=== PATIENT | male | born 1955 | race Caucasian/White ===

== ENCOUNTER 2018-01-18 02:10 | Inpatient (IN) | payer MEDICARE, MEDICAID ==
[2018-01-18] VITALS (28 sets, daily range): BP systolic 72–187; BP diastolic 49–139
[~2018-01-18] VITALS: Ht 177.8 cm; Wt 103.4 kg
[~2018-01-18 02:10] MED LIST: ACYCLOVIR 400400 MG PO; AMARYL4 MG PO; ANALGESIC325 MG PO; ASPIR 8181 MG PO; ASPIR-TRIN325 MG PO; EFFIENT10 MG PO; GLUCOPHAGE1000 MG PO; HYDROCHLOROTHIA25 M1 PO; HYDROCODON-ACE1 EAC7 PO; JANUMET XR 50-1 EAC1 PO; LASIX 40 MG TAB40 M2 PO; LIPITOR80 MG PO; LISINOPRIL40 MG PO; LOPRESSOR100 M1 PO; LOPRESSOR100 MG PO; MIRALAX17 GM PO; NAPROSYN500 MG PO; NIACIN ER1000 MG PO; NITROGLYCERIN0.4 MG SL; OMEGA-3 FISH O1 EAC3 PO; PACERONE 200 M200 M1 PO; PACERONE100 MG PO; POTASSIUM20 PO; PREDNISONE 10 M10 M1; PREDNISONE 10 M10 MG PO; PROTONIX40 M1 PO; TRICOR145 MG PO; TYLENOL325 MG PO
[2018-01-18 02:37] LABS: HEMATOCRIT 55.7 % (42.0-52.0); HEMOGLOBIN 18.3 gm/dL (14.0-18.0); MCH 30.6 pg (26.0-34.0); MCHC 32.9 g/dL (28.0-37.0); MPV 8.9 fl. (7.2-11.1); NUCLEATED RBCS 0 /100WBC; PLATELET COUNT* 281 thou/uL (150-400); RBC 5.98 mil/uL (4.50-6.00); RDW-CV 14.2 % (10.5-14.5); WBC 18.9 thou/uL (4.0-11.0)
[2018-01-18 02:50] LABS: ANION GAP 10 mmol/L (7-16); BUN 22 mg/dL (7-18); CHLORIDE 100 mmol/L (98-107); CO2 26 mmol/L (21-32); CREATININE 1.4 mg/dL (0.6-1.3); SODIUM 136 mmol/L (136-145)
[2018-01-18 02:51] LABS: CALCIUM 9.2 mg/dL (8.5-10.1); GLUCOSE 430 mg/dL (70-99)
[2018-01-18 02:52] LABS: APTT 25.9 Seconds (25.0-31.3)
[2018-01-18 02:55] LABS: ALKALINE PHOSPHATASE 136 U/L (46-116); LIPASE 337 U/L (73-393); SGOT 16 U/L (15-37); SGPT 20 U/L (30-65); TOTAL BILIRUBIN 0.3 mg/dL (<0.1-1.0); TOTAL PROTEIN 7.1 g/dL (6.4-8.2); TROPONIN-I LEVEL <0.06 ng/mL (<0.06)
[2018-01-18 02:56] LABS: NT-PRO BRAIN NAT PEPTIDE 1818 pg/mL (<300)
[2018-01-18 05:39] LABS: ABSOLUTE EOSINOPHILS 0.8 thou/uL (0.0-0.7); ABSOLUTE LYMPHOCYTES 7.9 thou/uL (0.8-5.3); ABSOLUTE MONOCYTES 0.8 thou/uL (0.0-1.2); ABSOLUTE NEUTROPHILS 9.5 thou/uL (1.6-8.1); ANISOCYTOSIS 1+; ATYPICAL LYMPHS 2 %; PLATELET ESTIMATE ADEQUATE; POIKILOCYTOSIS 1+
[2018-01-18 06:15] LABS: CHOLESTEROL 168 mg/dL (<200); HDL CHOLESTEROL 32 mg/dL (>40); LDL CHOLESTEROL 63 mg/dL (<100); TC:HDL 5.3 Ratio (Not establshd); TRIGLYCERIDE 367 mg/dL (<150); TROPONIN-I LEVEL 0.46 ng/mL (<0.06); VLDL 73 mg/dL (<40)
[2018-01-18 06:19] LABS: SERUM ASSESSMENT Clear
[2018-01-18 07:37] LABS: BE -5.2 mmol/L (-2 to +3); HCO3 17.9 mmol/L (22.0-26.0); PCO2 29.1 mmHg (35.0-45.0); pH 7.407 (7.340-7.450)
[2018-01-18 07:39] LABS: PO2 246.2 mmHg (75.0-100.0)
--- NOTE | 2018-01-18 08:49 | CON ---
[address] [address] CONSULTATION Name: KALLIEKINGSLEY MATHIS Room: [address] ADM IN M.R.#: [id number] Admission: 01/18/18 Attend Phys: Dante Peralta MD, F Discharge: Date of : 53 Report #: [id number] THIS REPORT FOR: //name// CC: Dante Peralta Physician staff LUCINA DUENASZ DATE OF SERVICE: 01/18/2018 HISTORY OF PRESENT ILLNESS: The patient is a 62-year-old single white male who came to the Emergency Room, complaining of shortness of breath. The patient has an extensive past medical history. The history is obtained from the patient's fuifte-ss-qbr, who was present. The patient is currently comatose and intubated. There are also some old records available. The patient was previously here in August of 2013. The patient had a history of coronary stenting and eventually underwent multivessel bypass surgery at [facility], here in [place], [place]. He has a history of atrial flutter, has been on amiodarone. In 2013, he presented with acute chest pain. ECG showed evidence of acute inferior STEMI. He was seen urgently by Dr. Sung. Urgent heart catheterization showed 80% narrowing in the apical LAD, circumflex was subtotally occluded. The right coronary was occluded. Vein graft to the circumflex had a severe proximal stenosis. There was a patent MILAN graft. Ejection fraction of 55%. He had 2 stents placed in the vein graft to the circumflex. The patient was continued on amiodarone and started on Effient. The patient was then admitted in 2014 with right-sided weakness and was felt to have a TIA. He has not been here since that time. The patient now lives down the [facility]. According to the edkyoi-iu-frd, he had a myocardial infarction a couple of months ago and was admitted to [facility] in [place], [place]. He had coronary stents placed. Then, about a month ago, he was admitted to the [facility] in [place]. He apparently presented with chest pain. He had additional coronary stents placed about a month ago. He lives by himself down the [facility]. However, he was here, visiting his pupqal-pr-bse. Apparently, according to the uxlbdx-fr-dux, he is not very active and uses a cane for balance. They went out to dinner last night. However, he awakened her at about 1 in the morning, complained of being short of breath. An ambulance was called. He was brought to the Emergency Room. He was found to be in respiratory distress. Because of respiratory failure, the patient was intubated. There was no complaint of chest pain. He has had no recent fever or cough, according to family members. He has had no recent syncope. PAST MEDICAL HISTORY: Otherwise significant for sleep apnea and he has been on CPAP in the past. According to family members, he does not have oxygen at this time. He has had previous hernia surgery. He has diabetes, [place] [address] CONSULTATION Name: KINGSLEY ARREGUIN DEL Room: [address] IN MShannanR.#: [id number] Admission: 10/04/18 Attend Phys: Dante Peralta MD, F Discharge: Date of : 53 Report #: [id number] MEDICATIONS: His previous medications included lisinopril, Lipitor, niacin, amiodarone, metoprolol, glimepiride, Janumet, hydrochlorothiazide, fenofibrate, aspirin, Effient. FAMILY HISTORY: Negative for heart disease. SOCIAL HISTORY: He is , lives in [facility]. 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 He continues to smoke cigarettes, but half pack a day. No alcohol abuse. REVIEW OF SYSTEMS: He has had a history of TIA. He has COPD. No history of peptic ulcer disease, kidney disease, cancer. He has a history of Rojas's palsy. PHYSICAL EXAMINATION: GENERAL: Revealed a disheveled middle-aged male. VITAL SIGNS: He had a blood pressure of 160/90, pulse is 100. HEENT: He was anicteric. Mucous membranes moist. NECK: Veins difficult to assess due to his long ma. CHEST: Revealed coarse breath sounds bilaterally. HEART: Regular, tachycardic. Distant heart sounds. ABDOMEN: Obese. EXTREMITIES: Had no edema. Dorsalis pedis pulse cannot be palpated. SKIN: Cool and dry. LABORATORY DATA: ECG showed sinus tachycardia, evidence of previous anterior infarction. His workup in the Emergency Room showed potassium 4.0, creatinine 1.4, glucose 430. Liver function studies were normal. Troponin 0.06. White blood cell count 18.9, hemoglobin 18.3. His echocardiogram in 2014 showed an ejection fraction of 50%. His chest x-ray done in the Emergency Room is not available to be read at this time. IMPRESSION AND RECOMMENDATIONS: 1. Acute respiratory failure. The patient intubated. Recommend urgent cardiac catheterization. 2. Acute coronary syndrome. Recommend cardiac catheterization. The patient had recent stents. Recommend cardiac catheterization. 3. Diabetes. The patient will require a sliding scale. 4. Chronic kidney disease. The patient will be at risk for acute tubular necrosis. 5. History of atrial flutter. The patient has been on amiodarone. 6. Hypertension. The patient on MEL inhibitor, beta steve. 7. Hyperlipidemia. The patient has been on a statin drug. 8. History of sleep apnea. 9. Obesity. 10. Tobacco abuse. 11. Chronic [place] [address] CONSULTATION Name: KINGSLEY ARREGUIN Room: [address]#: [id number] Admission: 01/18/18 Attend Phys: Dante Peralta MD, F Discharge: Date of : 53 Report #: [id number] The total time involved was from 3:00 a.m. to 4:30 a.m. or 1-1/2 hours. <ELECTRONICALLY SIGNED> By: Dante Peralta MD, FACC 01/18/18 0849 0442 [id number] Peralta MD, FACC /nt
--- NOTE | 2018-01-18 15:34 | 2DMMODE ---
[place] [address] 2 D/M-MODE ECHOCARDIOGRAM Name: CURT ARREGUIN Room: 002-P ADM IN [facility]#: [id number] Admission: 01/18/18 Attend Phys: Dante Peralta MD Discharge: Date of : 53 Date of Service: 01/18/18 1534 Report #: [id number] THIS REPORT FOR: //name// APPROVED REPORT Study performed: 01/18/2018 09:43:42 EXAM: Comprehensive 2D, Doppler, and color-flow Echocardiogram Patient Location: In-Patient Room #: 002 Status: routine BSA: 2.25 HR: 93 bpm BP: 107/75 mmHg Rhythm: NSR Other Information Study Quality: Good Indications Non STEMI Chest Pain 2D Dimensions IVSd: 14.13 (7-11mm) LVOT Diam: 24.05 (18-24mm) LVDd: 55.89 mm PWd: 11.22 (7-11mm) Ascending Ao: 35.84 (22-36mm) LVDs: 50.78 (25-40mm) Aortic Root: 39.33 mm Volumes Left Atrial Volume (Systole) LA ESV Index: 32.40 mL/m2 Aortic Valve AoV Peak Adams.: 0.95 m/s AO Peak Gr.: 3.64 mmHg LVOT Max P.00 mmHg AO Mean Gr.: 2.26 mmHg LVOT Mean P.92 mmHg LVOT Max V: 0.71 m/s AO V2 VTI: 11.37 cm LVOT Mean V: 0.44 m/s NELIA (VTI): 3.62 cm2 LVOT V1 VTI: 9.06 cm Mitral Valve E/A Ratio: 2.07 MV Decel. Time: 185.92 [place] [address] 2 D/M-MODE ECHOCARDIOGRAM Name: CURT ARREGUIN Room: [address] IN M.R.#: [id number] Admission: 01/18/18 Attend Phys: Dante Peralta MD Discharge: Date of : 53 Date of Service: 01/18/18 1534 Report #: [id number] MV E Max Adams.: 0.98 m/s MV PHT: 53.92 ms MVA (PHT): 4.08 cm2 TDI E/Lateral E': 14.00 E/Medial E': 8.91 Medial E' Adams.: 0.11 m/s Lateral E' Adams.: 0.07 m/s Pulmonary Valve PV Peak Adams.: 0.83 m/s PV Peak Gr.: 2.76 mmHg Tricuspid Valve RAP Estimate: 5.00 mmHg TR Peak Gr.: 16.40 mmHg RVSP: 21.00 mmHg PA Pressure: 21.00 mmHg Left Ventricle Left ventricle is mildly dilated. There is global hypokinesis with akinesis of the basal inferior wall as well as the mid to apical anterior anteroseptal pompa. There is normal left ventricular wall thickness. Left ventricular systolic function is severely decreased. LVEF is 25-30%. Severe diastolic dysfunction is present (restrictive filling). Right Ventricle The right ventricle is normal size. The right ventricular systolic function is normal. Atria The left atrium size is normal. The right atrium size is normal. Aortic Valve The aortic valve is normal in structure. No aortic regurgitation is present. There is no aortic valvular stenosis. Mitral Valve The mitral valve is normal in structure. Trace mitral regurgitation. No evidence of mitral valve stenosis. Tricuspid Valve The tricuspid valve is normal in structure. Trace tricuspid regurgitation. No pulmonary hypertension[place] [address] 2 D/M-MODE ECHOCARDIOGRAM Name: CURT ARREGUIN Room: [address] IN [facility]#: [id number] Admission: 01/18/18 Attend Phys: Dante Peralta MD Discharge: Date of : 53 Date of Service: 01/18/18 1534 Report #: [id number] The pulmonary valve is normal in structure. Mild pulmonic regurgitation. Great Vessels The aortic root is normal in size. The IVC is mildly dilated and does not collapse. Pericardium There is no pericardial effusion. <Conclusion> There is global hypokinesis with akinesis of the basal inferior wall as well as the mid to apical anterior anteroseptal pompa. The IVC is mildly dilated and does not collapse. <ELECTRONICALLY SIGNED> By: Curt Aguayo MD, FACC 01/18/18 1534 1534 1534 Curt Aguayo MD, FACC /INF
[2018-01-18 15:44] LABS: HCO3 22.3 mmol/L (22.0-26.0); PCO2 33.5 mmHg (35.0-45.0); PO2 75.4 mmHg (75.0-100.0); pH 7.441 (7.340-7.450)
--- NOTE | 2018-01-18 16:44 | EKG ---
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: KATHERINE : 1955 Requested By: Yaritza Segovia Order Number: [id number] MD: Dajuan Rivas Measurements Intervals [place] Rate: 143 P: 257 [place]: 88 QRS: 46 QRSD: 135 T: 46 QT: 344 QTc: 531 Interpretive Statements Sinus or ectopic atrial tachycardia Possible anterolateral infarct, acute Prolonged QT interval Compared to ECG 03/20/2015 06:23:28 ST (T wave) deviation now present Prolonged QT interval now present Sinus rate has increased Electronically Signed On 01-18-2018 16:44:44 CDT by Dajuan Rivas [email or web address] <ELECTRONICALLY SIGNED> By: Dajuan Rivas MD, [facility] 01/18/18 1644 5 5 Dajuan Rivas MD, [facility] /EPI
--- NOTE | 2018-01-18 16:46 | EKG ---
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: : 1955 Requested By: Dante Peralta Order Number: [id number] Mannie MD: Dajuan Rivas Measurements Intervals [place] Rate: 89 P: 53 [place]: 183 QRS: 20 QRSD: 121 T: 135 QT: 397 QTc: 484 Interpretive Statements Sinus rhythm Ventricular premature complex Probable left atrial enlargement Nonspecific intraventricular conduction delay Nonspecific T abnormalities, lateral leads Compared to ECG 03/20/2015 06:23:28 Ventricular premature complex(es) now present Intraventricular conduction delay now present T-wave abnormality now present Myocardial infarct finding no longer present Electronically Signed On 01-18-2018 16:46:18 CDT by Dajuan Rivas [email or web address] <ELECTRONICALLY SIGNED> By: Dajuan Rivas MD, FACC 01/18/18 1646 1 1 Dajuan Rivas MD, FACC /EPI
[2018-01-19] VITALS (28 sets, daily range): BP systolic 104–142; BP diastolic 63–97
[2018-01-19 02:12] LABS: GLYCOHEMOGLOBIN (HGB A1C) 8.7 % (4.8-5.6)
[2018-01-19 05:53] LABS: ABSOLUTE LYMPHOCYTES 0.9 thou/uL (0.8-5.3); ABSOLUTE MONOCYTES 0.3 thou/uL (0.0-1.2); ABSOLUTE NEUTROPHILS 8.2 thou/uL (1.6-8.1); BASOPHILS 0.5 %; HEMATOCRIT 40.6 % (42.0-52.0); LYMPHOCYTES 9.3 %; MCH 30.3 pg (26.0-34.0); MCV 89.1 fL (80.0-100.0); MONOCYTES 3.2 %; MPV 8.9 fl. (7.2-11.1); NUCLEATED RBCS 0 /100WBC; RBC 4.56 mil/uL (4.50-6.00); RDW-CV 13.6 % (10.5-14.5); WBC 9.4 thou/uL (4.0-11.0)
[2018-01-19 05:58] LABS: CALCIUM 8.4 mg/dL (8.5-10.1); CREATININE 1.7 mg/dL (0.6-1.3); HEMOGLOBIN 13.8 gm/dL (14.0-18.0); PLATELET COUNT* 168 thou/uL (150-400); POTASSIUM 3.4 mmol/L (3.5-5.1)
[2018-01-19 06:30] LABS: BE 0.6 mmol/L (-2 to +3); HCO3 22.3 mmol/L (22.0-26.0); PCO2 28.4 mmHg (35.0-45.0); PO2 74.2 mmHg (75.0-100.0); pH 7.512 (7.340-7.450)
--- NOTE | 2018-01-19 13:12 | CON ---
[address] [address] CONSULTATION Name: KINGSLEY ARREGUIN Room: [address] ADM IN M.R.#: [id number] Admission: 01/18/18 Attend Phys: Dante Peralta MD, F Discharge: Date of : 53 Report #: [id number] THIS REPORT FOR: //name// CC: Dante Peralta Physician staff [facility] REQUESTING PHYSICIAN: Dr. Win. REASON FOR CONSULTATION: Respiratory failure, pulmonary edema, on ventilator. DISCUSSION: The patient is a 62-year-old man who has a history of significant coronary artery disease. Unfortunately, continues to smoke as well. He lives apparently down by the [facility], but was up in this area visiting family. He presented to the Emergency Room during the night (around 2:00 a.m.) with complaints of chest pain. Apparently, he had had it most of the day. Had gone to bed, woke up with significant chest pain. Apparently, O2 saturations were low, he was extremely diaphoretic and was brought in via EMS. Code STEMI was called. He was intubated in the Emergency Department. 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 I do not believe any interventions were done. He does document a history of coronary artery disease, has undergone coronary artery bypass grafting surgery. He has had multiple stents done. He was hospitalized just last month, apparently at a hospital in [place] ([facility]) and had additional stents placed. He has required pressor support. He was initially very tachycardic on admission, the rate has been better controlled. Oxygenation has been adequate. He has required up to 8 of PEEP and was still on 60% oxygen at the time of my visit this afternoon. PAST MEDICAL HISTORY: Remarkable for coronary artery disease as noted. He has also had a prior TIA, sleep apnea and reportedly is on CPAP though unknown how compliant he is with that, diabetes mellitus, hypertension, dyslipidemia, had a herniorrhaphy, atrial flutter. HOME MEDICATIONS: With the information I have, his home medications have been Lipitor, fenofibrate, amiodarone, p.r.n. nitroglycerin, lisinopril, aspirin, naproxen p.r.n., Lasix, hydrochlorothiazide, MiraLax, Protonix, Amaryl, metoprolol, potassium. SOCIAL HISTORY: He is a smoker. Reportedly, was still smoking at least a half pack of cigarettes per day. According to old notes in the computer, he has smoked more than that. FAMILY HISTORY: Positive for [place] [address] CONSULTATION Name: KINGSLEY ARREGUIN Room: [address] IN .R.#: [id number] Admission: 01/18/18 Attend Phys: Dante Pearlta MD, F Discharge: Date of : 53 Report #: [id number] REVIEW OF SYSTEMS: Unable to obtain from the patient. PHYSICAL EXAMINATION: GENERAL: Appearance of a man looks his stated age. Currently sedated and intubated on the ventilator. HEENT: Head is normocephalic. Sclerae nonicteric. Mucous membranes moist. NECK: Negative for adenopathy. Neck veins do look a little full. He has a well-healed median sternotomy. HEART: Regular, occasional extrasystole. No S3 is definitely heard. LUNGS: Fairly clear. Breath sounds are equal. No subcutaneous emphysema is noted. ABDOMEN: Soft though protuberant. Does not appear to have any hepatosplenomegaly noted. Santos catheter is in place. EXTREMITIES: There is some trace edema in the lower extremities. SKIN: Warm and dry. LABORATORY AND X-RAY FINDINGS: Echocardiogram done revealed LV mildly dilated with global hypokinesis. Estimated EF was 25%-30%. Also, has severe diastolic dysfunction. No pulmonary hypertension. No significant valvular disease was noted. Chest x-ray revealed endotracheal tube in position with extensive infiltrates, all consistent with acute pulmonary edema. On his chemistry, sodium was 136, potassium 4.0, bicarbonate of 26, BUN of 22, creatinine of 1.4, glucose is elevated greater than 200. ProBNP was greater than 1800. Troponins are mildly elevated. White blood cell count 18,900; hemoglobin 18.3; hematocrit of 55.7. Arterial blood gas done this afternoon, he had a pH of 7.44, pCO2 of 34, pO2 75, bicarbonate of 22 with a saturation 94%. IMPRESSION: 1. Acute respiratory failure, appears to be due to significant pulmonary edema. He does have severe systolic and diastolic heart failure. 2. Elevated creatinine, baseline is not clear. May be somewhat dehydrated. Also, note, his hemoglobin and hematocrit are elevated. 3. History of tobacco abuse, was still an active smoker. Unfortunately, this will exacerbate his heart disease. He may have some underlying obstructive lung disease. At this point, I do not know if he is on any inhalers or use nebulizer at home. 4. Sleep apnea, has been on CPAP in the past. Unknown if he is currently compliant with that. 5. Elevated hemoglobin and hematocrit. I believe may have been related to some mild dehydration. 6. Diabetes mellitus, elevated blood sugars, most likely related to the IV Solu-Medrol. RECOMMENDATIONS: 1. Continue vent support, wean FiO2 as able. [address] [address] CONSULTATION Name: KINGSLEY ARREGUIN DEL Room: [address] ADM IN M.R.#: [id number] Admission: 01/18/18 Attend Phys: Dante Peralta MD, F Discharge: Date of : 53 Report #: [id number] 2. Difficult problem. Received some additional fluid today due to the fact he appears to be intravascularly dry. Ultimately, will probably need some diuresis. 3. Sedation as needed. 4. Wean pressors as able. <ELECTRONICALLY SIGNED> By: Malou Galdamez MD 01/19/18 1312 1829 0719Malou Galdamez MD /nt
[2018-01-19 14:56] LABS: BE -0.6 mmol/L (-2 to +3); HCO3 22.8 mmol/L (22.0-26.0); PCO2 34.1 mmHg (35.0-45.0); PO2 134.2 mmHg (75.0-100.0); pH 7.443 (7.340-7.450)
[2018-01-20] VITALS (40 sets, daily range): BP systolic 92–168; BP diastolic 60–104
[2018-01-20 05:38] LABS: ABSOLUTE LYMPHOCYTES 0.8 thou/uL (0.8-5.3); ABSOLUTE MONOCYTES 0.6 thou/uL (0.0-1.2); ABSOLUTE NEUTROPHILS 8.4 thou/uL (1.6-8.1); BASOPHILS 0.4 %; EOSINOPHILS 0.1 %; HEMATOCRIT 40.7 % (42.0-52.0); HEMOGLOBIN 13.9 gm/dL (14.0-18.0); LYMPHOCYTES 8.1 %; MCH 30.7 pg (26.0-34.0); MCHC 34.3 g/dL (28.0-37.0); MCV 89.6 fL (80.0-100.0); MONOCYTES 6.1 %; MPV 9.3 fl. (7.2-11.1); NUCLEATED RBCS 0 /100WBC; PLATELET COUNT* 133 thou/uL (150-400); POLYS 85.3 %; RBC 4.54 mil/uL (4.50-6.00); RDW-CV 14.3 % (10.5-14.5); WBC 9.9 thou/uL (4.0-11.0)
[2018-01-20 06:19] LABS: BE -5.1 mmol/L (-2 to +3)
[2018-01-20 06:23] LABS: PCO2 55.4 mmHg (35.0-45.0); PO2 142.6 mmHg (75.0-100.0); pH 7.237 (7.340-7.450)
[2018-01-20 06:23] LABS: CALCIUM 8.6 mg/dL (8.5-10.1); CREATININE 1.6 mg/dL (0.6-1.3); POTASSIUM 3.6 mmol/L (3.5-5.1)
[2018-01-21] VITALS (20 sets, daily range): BP systolic 112–145; BP diastolic 70–95
[2018-01-21 04:13] LABS: ABSOLUTE LYMPHOCYTES 0.8 thou/uL (0.8-5.3); ABSOLUTE MONOCYTES 0.6 thou/uL (0.0-1.2); BASOPHILS 0.5 %; HEMATOCRIT 39.2 % (42.0-52.0); HEMOGLOBIN 13.3 gm/dL (14.0-18.0); LYMPHOCYTES 9.6 %; MCH 30.5 pg (26.0-34.0); MCHC 33.9 g/dL (28.0-37.0); MONOCYTES 6.8 %; MPV 9.1 fl. (7.2-11.1); NUCLEATED RBCS 0 /100WBC; PLATELET COUNT* 137 thou/uL (150-400); POLYS 83.1 %; RBC 4.35 mil/uL (4.50-6.00); WBC 8.4 thou/uL (4.0-11.0)
[2018-01-21 04:25] LABS: ALBUMIN 2.3 g/dL (3.4-5.0); CALCIUM 7.9 mg/dL (8.5-10.1); CREATININE 1.4 mg/dL (0.6-1.3); POTASSIUM 3.2 mmol/L (3.5-5.1); TOTAL BILIRUBIN 0.3 mg/dL (<0.1-1.0); TOTAL PROTEIN 5.8 g/dL (6.4-8.2)
[2018-01-21 05:49] LABS: BE -1.2 mmol/L (-2 to +3); HCO3 24.7 mmol/L (22.0-26.0); PCO2 45.9 mmHg (35.0-45.0); pH 7.349 (7.340-7.450)
[2018-01-21 09:06] LABS: BE 1.5 mmol/L (-2 to +3); HCO3 26.9 mmol/L (22.0-26.0); PCO2 45.4 mmHg (35.0-45.0); PO2 91.1 mmHg (75.0-100.0); pH 7.391 (7.340-7.450)
[2018-01-22] VITALS (7 sets, daily range): BP systolic 105–165; BP diastolic 62–97
--- NOTE | 2018-01-22 10:35 | CARD ---
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 Dante Peralta MD, Tribal Council Member; Kimberly Castañeda RN, Silver Buffer; Elsa Treviño RN, Monitor; LATANYA Eduardo, Scrub. Procedures Performed [facility] with Coronary Artery Bypass Grafts Indication Abnormal ECG, Dyspnea Risk Factors Dysplipidemia Obesity, Coronary Artery Disease, Diabetes Tobacco History () Previous Procedures/Diagnoses Previous CABGPrevious PCI, Previous MT Admission/Lab Medications/Medications given during procedure Heparin Bolus was given to patient in Emergency Room. Procedure Narrative The patient was brought emergently to the Cardiac Catheterization Laboratory and was prepped and draped in a sterile manner. The right femoral was infiltrated with 1% Lidocaine subcutaneous anesthesia. A 6 fr sheath was inserted into the right femoral artery. Coronary angiography was performed using coronary diagnostic catheters. The right coronary system was accessed and visualized with a Diagnostic catheter. The left coronary system was accessed and visualized with a Diagnostic catheter. Left ventricular/Aortic Valve gradient assessed via catheter pullback. An aortogram of the ascending aorta was performed. The patient tolerated the procedure well and there were no complications associated with the procedure. There was no hematoma. Aortic Root injection was completed with 30 ml Visipaque at 20ml/sec 650PSI. 7 Fr venous sheath was placed in [place] [address] CARDIAC CATH REPORT Name: KINGSLEY ARREGUIN Room: [address] IN [facility]#: [id number] Admission: 01/18/18 Attend Phys: Dante Peralta MD, F Discharge: Date of : 53 Report #: [id number] Sheaths were sutured in place at the end of the procedure. Intraoperative Conscious Sedation Sedation start time: 3:29 Case end Time: 4:28 Versed 2.0 mg Propofol / Diprivan mg Patient had a Versed Drip for sedation comfort at 5mg/hr during procedure. Propofol started in procedure due to ventilator intolerance. Fluoro Time: 8.5 minutes Dose: DAP 233696 cGycm2 1831 mGy Contrast Type and Amount: 190ml Visipaque Coronary Angiography The patient's coronary anatomy is co- dominant. [place] Artery Percent Stenosis Grafts (Complete if Previous CABG=Yes: Percent Stenosis) SVG to distal marginal branch of the circumflex was patent with a long area of proximal stent that had a 60% proximal stenosis. The mid SVG had a 60% stenosis. The MILAN graft was patent, although the lumen was narrow throughtout, and the [place] lad was occluded beyond the insertion of the milan graft. Arteriogram of the right internal mammary artery revealed that the vessel had not been used for grafting. Diagnostic Cath Left Main 0% stenosis LAD apical lad after the insertion of the milan graft appeared chronically occluded Diagonal 1 proximal 90% stenosis Circumflex 60% mid stenosis OM2 proximal stent appeared chronically occluded Right Coronary proximal chronic occlusion. Distal rca filled by collaterals from the distal circumflex Left Ventriculography Left Ventriculography was not performed. Aortic root injection showed the takeoff of only one SVG and no aortic insufficiency Hemodynamics The aortic pressure is 125/90 mmHg with a mean of 100 mmHg. The left ventricular pressure is 133/16 mmHg with [place] [address] CARDIAC CATH REPORT Name: SAMKONSTANTINKINGSLEY DEL Room: [address]#: [id number] Admission: 01/18/18 Attend Phys: Dante Peralta MD, F Discharge: Date of : 53 Report #: [id number] ventricular end diastolic pressure is 30 mmHg. There was no gradient across the aortic valve upon pullback. Pullback from the left ventricle to the aorta revealed no gradient across the aortic valve. Blood gas obtained during procedure shows pH 7.230, pCO2 42.9, pO2 78.8, HCO3 17.6, BE -9.7 Oxygen saturation via blood gas 93.4% Conclusion 1. Apical lad appeared chronically occluded beyond the insertion of the milan graft 2. Stent in the 2nd marginal branch appeared chronically occluded 3. RCA appeared chronically occluded 4. SVG to the distal circumflex had a long proximal stent with a proximal 60% stenosis. There was a 60% mid stenosis beyond the proximal stent Recommendations [facility] <ELECTRONICALLY SIGNED> By: Dante Peralta MD, [facility] 01/22/18 1035 1035Dalayton Peralta MD, FAC /INF
[2018-01-23] VITALS: BP 113/70
[2018-01-23 04:00] VITALS: BP 130/76
[2018-01-23 06:39] LABS: HEMATOCRIT 43.6 % (42.0-52.0); HEMOGLOBIN 14.5 gm/dL (14.0-18.0); MCHC 33.3 g/dL (28.0-37.0); MCV 90.2 fL (80.0-100.0); MPV 9.3 fl. (7.2-11.1); NUCLEATED RBCS 0 /100WBC; PLATELET COUNT* 137 thou/uL (150-400); RBC 4.83 mil/uL (4.50-6.00); WBC 7.4 thou/uL (4.0-11.0)
[2018-01-23 07:17] LABS: ABSOLUTE LYMPHOCYTES 1.4 thou/uL (0.8-5.3); ABSOLUTE MONOCYTES 0.5 thou/uL (0.0-1.2); ABSOLUTE NEUTROPHILS 5.5 thou/uL (1.6-8.1); METAMYELOCYTES 1 %; PLATELET ESTIMATE ADEQUATE
[2018-01-23 07:40] LABS: ALBUMIN 2.7 g/dL (3.4-5.0); CALCIUM 8.5 mg/dL (8.5-10.1); CREATININE 1.1 mg/dL (0.6-1.3); POTASSIUM 3.2 mmol/L (3.5-5.1); TOTAL BILIRUBIN 0.4 mg/dL (<0.1-1.0); TOTAL PROTEIN 5.8 g/dL (6.4-8.2)
[2018-01-23 08:00] VITALS: BP 147/72
[2018-01-23 11:58] VITALS: BP 142/79
[2018-01-23 15:59] VITALS: BP 125/88
[2018-01-23 20:59] VITALS: BP 123/88
[2018-01-24 00:53] VITALS: BP 120/75
[2018-01-24 04:40] VITALS: BP 111/67
[2018-01-24 08:27] VITALS: BP 118/70
--- NOTE | 2018-01-24 10:04 | EKG ---
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
[2018-01-24 13:00] VITALS: BP 110/70
[2018-01-24 16:00] VITALS: BP 103/74
[2018-01-24 20:00] VITALS: BP 105/74
[2018-01-25] VITALS: BP 119/76
[2018-01-25 04:00] VITALS: BP 111/81
[2018-01-25 04:42] LABS: ABSOLUTE BASOPHILS 0.1 thou/uL (0.0-0.2); ABSOLUTE EOSINOPHILS 0.1 thou/uL (0.0-0.7); ABSOLUTE LYMPHOCYTES 1.8 thou/uL (0.8-5.3); ABSOLUTE MONOCYTES 0.8 thou/uL (0.0-1.2); ABSOLUTE NEUTROPHILS 6.8 thou/uL (1.6-8.1); BASOPHILS 0.5 %; EOSINOPHILS 0.6 %; HEMATOCRIT 45.9 % (42.0-52.0); HEMOGLOBIN 15.6 gm/dL (14.0-18.0); MCH 30.4 pg (26.0-34.0); MCV 89.4 fL (80.0-100.0); MONOCYTES 8.6 %; MPV 8.4 fl. (7.2-11.1); NUCLEATED RBCS 0 /100WBC; PLATELET COUNT* 159 thou/uL (150-400); POLYS 71.3 %; RBC 5.14 mil/uL (4.50-6.00); RDW-CV 13.7 % (10.5-14.5); WBC 9.5 thou/uL (4.0-11.0)
[2018-01-25 04:56] LABS: ALBUMIN 2.7 g/dL (3.4-5.0); CALCIUM 8.8 mg/dL (8.5-10.1); POTASSIUM 3.4 mmol/L (3.5-5.1); TOTAL BILIRUBIN 0.6 mg/dL (<0.1-1.0); TOTAL PROTEIN 6.3 g/dL (6.4-8.2)
[2018-01-25] MEDS ORDERED: PLAVIX 75 MG TA75 M1 PO (14:09)
[2018-01-25] MEDS ORDERED: COZAAR 25 MG TA25 M1 PO (14:14)
[2018-01-25] MEDS ORDERED: PREDNISONE 10 M10 MG PO (14:16)
== END 2018-01-25 17:01 | disposition home or self-care (01) | DRG 280 ==
LOC: M.CL 02:10 → M.ERS 02:10 → M.ICU 03:08 → M.TBA-ER 03:08 → M.ICU 04:31 → M.3W 01-22 10:12 → M.2W 01-23 18:48
PROVIDERS: Internal Medicine; Internal Medicine Pulmonary Disease; Personal Emergency Response Attendant; ADMIT Internal Medicine Cardiovascular Disease
PROC: 5A1945Z Respiratory Ventilation, 24-96 Consecutive Hours (ICD-10-PCS; principal; 2018-01-18)
PROC: 0BH17EZ Insertion of Endotracheal Airway into Trachea, Via Natural or Artificial Opening (ICD-10-PCS; principal; 2018-01-18)
PROC: B2131ZZ Fluoroscopy of Multiple Coronary Artery Bypass Grafts using Low Osmolar Contrast (ICD-10-PCS; 2018-01-22)
PROC: B2151ZZ Fluoroscopy of Left Heart using Low Osmolar Contrast (ICD-10-PCS; 2018-01-22)
PROC: 4A023N7 Measurement of Cardiac Sampling and Pressure, Left Heart, Percutaneous Approach (ICD-10-PCS; 2018-01-22)
PROC: B2111ZZ Fluoroscopy of Multiple Coronary Arteries using Low Osmolar Contrast (ICD-10-PCS; 2018-01-22)
DX: T82.855A Stenosis of coronary artery stent, initial encounter (principal); I21.3 ST elevation (STEMI) myocardial infarction of unspecified site; J96.01 Acute respiratory failure with hypoxia; J69.0 Pneumonitis due to inhalation of food and vomit; I50.43 Acute on chronic combined systolic (congestive) and diastolic (congestive) heart failure; R57.0 Cardiogenic shock; I48.92 Unspecified atrial flutter; I13.0 Hypertensive heart and chronic kidney disease with heart failure and stage 1 through stage 4 chronic kidney disease, or unspecified chronic kidney disease; R65.10 Systemic inflammatory response syndrome (SIRS) of non-infectious origin without acute organ dysfunction; I42.9 Cardiomyopathy, unspecified; D75.1 Secondary polycythemia; E11.65 Type 2 diabetes mellitus with hyperglycemia; D69.6 Thrombocytopenia, unspecified; T38.0X5A Adverse effect of glucocorticoids and synthetic analogues, initial encounter; G51.0 Bell's palsy; N18.9 Chronic kidney disease, unspecified; I48.0 Paroxysmal atrial fibrillation; E66.9 Obesity, unspecified; E11.22 Type 2 diabetes mellitus with diabetic chronic kidney disease; I25.10 Atherosclerotic heart disease of native coronary artery without angina pectoris; Y83.8 Other surgical procedures as the cause of abnormal reaction of the patient, or of later complication, without mention of misadventure at the time of the procedure; G47.30 Sleep apnea, unspecified; F17.200 Nicotine dependence, unspecified, uncomplicated; E78.5 Hyperlipidemia, unspecified; J44.9 Chronic obstructive pulmonary disease, unspecified; I25.2 Old myocardial infarction; Z95.5 Presence of coronary angioplasty implant and graft; Z98.52 Vasectomy status; Z95.1 Presence of aortocoronary bypass graft; Z79.82 Long term (current) use of aspirin; Z79.899 Other long term (current) drug therapy; Z88.0 Allergy status to penicillin; Z86.73 Personal history of transient ischemic attack (TIA), and cerebral infarction without residual deficits; Y92.89 Other specified places as the place of occurrence of the external cause; Z71.6 Tobacco abuse counseling